=== PATIENT | female | born 1990 | race Caucasian/White ===

== ENCOUNTER 2016-10-17 19:55 | Emergency (ER) | payer OTHER ==
[2016-10-17] MEDS ORDERED: ACETAMINOPHEN 325 MG TABLET PO ONE (20:30)
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
[2016-10-17 21:56] LABS: ABSOLUTE BASOPHILS # (AUTO) 0.1 10^3/uL (0.0-0.2); ABSOLUTE LYMPHOCYTES (AUTO) 2.3 10^3/uL (0.5-4.7); ABSOLUTE MONOCYTES (AUTO) 0.9 10^3/uL (0.1-1.4); ABSOLUTE NEUT (AUTO) 10.6 10^3/uL (1.7-8.2); BASOPHILS % (AUTO) 0.4 % (0-2); EOSINOPHILS % (AUTO) 0.3 % (0-6); HEMATOCRIT 41.9 % (36.0-47.0); HEMOGLOBIN 14.3 g/dL (12.0-15.5); LYMPHOCYTES % (AUTO) 16.8 % (13-45); MEAN CORPUSCULAR HEMOGLOBIN 28.3 pg (27.0-33.4); MEAN CORPUSCULAR HGB CONC 34.2 g/dL (32.0-36.0); MEAN CORPUSCULAR VOLUME 83 fl (80-97); MONOCYTES % (AUTO) 6.2 % (3-13); RED BLOOD COUNT 5.07 10^6/uL (3.72-5.28); RED CELL DISTRIBUTION WIDTH 12.7 % (11.5-14.0); SEGMENTED NEUTROPHILS % (AUTO) 76.3 % (42-78); WHITE BLOOD COUNT 13.9 10^3/uL (4.0-10.5)
[2016-10-17 21:57] LABS: APPEARANCE,URINE SLIGHTLY-CLOUDY; BILIRUBIN,URINE NEGATIVE (NEGATIVE); GLUCOSE, URINE NEGATIVE (NEGATIVE); KETONES,URINE NEGATIVE (NEGATIVE); LEUKOCYTE ESTERASE,URINE SMALL (NEGATIVE); NITRITE,URINE NEGATIVE (NEGATIVE); PROTEIN,URINE 30 mg/dL (NEGATIVE); URINE SPECIFIC GRAVITY 1.029; UROBILINOGEN,URINE NEGATIVE mg/dL (<2.0)
[2016-10-17 22:07] LABS: ALANINE AMINOTRANSFERASE 25 U/L (9-52); ALBUMIN 3.9 g/dL (3.5-5.0); ALKALINE PHOSPHATASE 72 U/L (38-126); ANION GAP 8 (5-19); ASPARTATE AMINO TRANSFERASE 19 U/L (14-36); BILIRUBIN,TOTAL 0.4 mg/dL (0.2-1.3); BLOOD UREA NITROGEN 8 mg/dL (7-20); CALCIUM 9.9 mg/dL (8.4-10.2); CARBON DIOXIDE 27 mmol/L (22-30); CHLORIDE 106 mmol/L (98-107); GLUCOSE 102 mg/dL (75-110); POTASSIUM 3.8 mmol/L (3.6-5.0); SODIUM 141.3 mmol/L (137-145); TOTAL PROTEIN 7.3 g/dL (6.3-8.2)
[2016-10-17 22:41] LABS: URINE BARBITURATES SCREEN NEGATIVE; URINE METHADONE SCREEN NEGATIVE; URINE OPIATES LOW NEGATIVE; URINE PHENCYCLIDINE SCREEN NEGATIVE
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
[2016-10-18] MEDS ORDERED: CYCLOBENZAPRINE HCL 10 MG TABLET PO ONE (00:52)
[2016-10-18] MEDS ORDERED: IBUPROFEN 800 MG TABLET PO ONE (00:52)
[2016-10-18 01:30] VITALS: BP 121/67
== END 2016-10-18 01:28 | disposition home or self-care (01) ==
LOC: ER 19:55
DX: R51 Headache (principal); M54.89 Other dorsalgia; R10.31 Right lower quadrant pain; M54.2 Cervicalgia; V48.0XXA Car driver injured in noncollision transport accident in nontraffic accident, initial encounter
CPT/HCPCS: 36415; 70450; 72070; 72125; 74177; 80053; 80307; 81001; 84703; 85025; 99285

== ENCOUNTER 2016-12-18 13:49 | Emergency (ER) | payer MEDICAID, OTHER ==
[2016-12-18 13:54] VITALS: BP 128/76
--- NOTE | 2016-12-18 14:16 | ER Document Report ---
ED Skin Rash/Insect Bite/Abscs - General Chief Complaint: Abscess Stated Complaint: ABSCESS Time seen by provider: 14:13 Mode of Arrival: Ambulatory Information source: Patient Notes: 26-year-old female presents to ED for abscess this started on Wednesday. She states it is progressively gotten bigger and more painful since Wednesday. She states it did have a little bit of drainage on Wednesday but none since then. Pain is a 5 / 5 sharp and stabbing TRAVEL OUTSIDE OF THE [place] IN LAST 30 DAYS: No - HPI Patient complains to provider of: Tender/swollen area Onset: Other - Wednesday Onset/Duration: Gradual Quality of pain: Sharp, Stabbing, Throbbing Severity: Severe Pain Level: 5 Skin Character: Abscess - Right pelvic area Quality of rash: Painful Identify cause: No Exacerbated by: Movement, Walking Relieved by: Denies Similar symptoms previously: No Recently seen / treated by doctor: No - Related Data Allergies/Adverse Reactions: No Known Allergies Allergy (Verified 12/18/16 13:52) Past Medical History - General Information source: Patient - Social History Smoking Status: Current Every Day Smoker Cigarette use (# per day): Yes - wanted to cigarettes a day Chew tobacco use (# tins/day): No Smoking Education Provided: Yes - less than 1 minute Frequency of alcohol use: None Drug Abuse: Marijuana Occupation: [employer] Lives with: Alone - With children Family History: Reviewed & Not Pertinent Patient has suicidal ideation: No Patient has homicidal ideation: No - Past Medical History Cardiac Medical History: Reports: None Pulmonary Medical History: Reports: None EENT Medical History: Reports: None Neurological Medical History: Reports: None Endocrine Medical History: Reports: None Renal/ Medical History: Reports: Hx Kidney Stones Malignancy Medical History: Reports: None GI Medical History: Reports: None Musculoskeltal Medical History: Reports Hx Musculoskeletal Trauma - Left wrist fracture Skin Medical History: Reports Hx Cellulitis Psychiatric Medical History: Reports: Hx Anxiety, Hx Depression Traumatic Medical History: Reports: Hx Fractures - Left wrist Infectious Medical History: Reports: None Past Surgical History: Reports: Hx Oral Surgery - [place] teeth Review of Systems - Review of Systems Constitutional: No symptoms reported EENT: No symptoms reported Cardiovascular: No symptoms reported Respiratory: No symptoms reported Gastrointestinal: No symptoms reported Genitourinary: No symptoms reported Female Genitourinary: No symptoms reported Musculoskeletal: No symptoms reported Skin: Other - Abscess right pelvis Hematologic/Lymphatic: No symptoms reported Neurological/Psychological: No symptoms reported -: Yes All other systems reviewed and negative Physical Exam - Vital signs Vitals: Temp Pulse Resp BP Pulse Ox 98.7 F 99 16 128/76 H 97 12/18/16 13:53 12/18/16 13:53 12/18/16 13:53 12/18/16 13:53 12/18/16 13:53 Interpretation: Normal - General General appearance: Appears well, Alert - HEENT Head: Normocephalic, Atraumatic Eyes: Normal Pupils: PERRL - Respiratory Respiratory status: No respiratory distress Chest status: Nontender Breath sounds: Normal Chest palpation: Normal - Cardiovascular Rhythm: Regular Heart sounds: Normal auscultation Murmur: No - Abdominal Inspection: Normal Distension: No distension Bowel sounds: Normal Tenderness: Nontender Organomegaly: No organomegaly - Back Back: Normal, Nontender - Extremities General upper extremity: Normal inspection, Nontender, Normal color, Normal ROM , Normal temperature General lower extremity: Normal inspection, Nontender, Normal color, Normal ROM , Normal temperature, Normal weight bearing. No: Robert's sign - Neurological Neuro grossly intact: Yes Cognition: Normal Orientation: AAOx4 Luis Felipe Coma Scale Eye Opening: Spontaneous Luis Felipe Coma Scale Verbal: Oriented [place] Coma Scale Motor: Obeys Commands Luis Felipe Coma Scale Total: 15 Speech: Normal Motor strength normal: LUE, RUE, LLE, RLE Sensory: Normal - Psychological Associated symptoms: Normal affect, Normal mood - Skin Skin Temperature: Warm Skin Moisture: Dry Skin Color: Normal Skin irregularity: Abscess - Right pelvis Irregularity with: Swelling, Tenderness, Warmth Course - Re-evaluation Re-evalutation: 12/18/16 14:35 Patient treated with Septra and Keflex after an I&D completed. Patient also discharged home with prescription for [place]ley Septra and Keflex. - Vital Signs Vital signs: Temp Pulse Resp BP Pulse Ox 98.7 F 99 16 128/76 H 97 12/18/16 13:53 12/18/16 13:53 12/18/16 13:53 12/18/16 13:53 12/18/16 13:53 Procedures - Incision and Drainage Right Groin Time completed: 14:34 Type: Simple Anesthetic type: 1% Lidocaine mL's of anesthetic: 5 Blade size: 11 I&D procedure: Sterile dressing applied, Other - surgical scrub Incision Method: Incision made by scalpel Amount/type of drainage: large amount of purulent drainage Female anatomy: 1 - Abscess Discharge - Discharge Clinical Impression: Abscess of right groin Condition: Stable Disposition: HOME, SELF-CARE Instructions: Family Physicians / Practices Additional Instructions: ABSCESS: You have an abscess (boil). This a pus-forming infection, usually due to staph. Some boils may be left to drain on their own, but most require lancing. From the time the tender lump first appears, it may be three or four days before the abscess is ready to martina. Local heat and rest help at this stage of treatment. An antibiotic may prevent spread of the infection. Once the abscess is opened, packing may be placed into it. This is done so pus is not sealed inside by premature closure of the cavity. The packing will be removed at your follow-up visit or you may be advised to remove it yourself at home. Sometimes this packing must be replaced a few times during healing. The wound will heal with surprisingly little scar. Depending on the size and location of an abscess, healing can take one to four weeks. You may shower and wash the area around the incision site two or three times a day. Antibiotics may be prescribed, but are usually not necessary after an abscess has been drained. If you develop fever, chills, worsening pain, or increasing swelling in the area, call the doctor or return immediately. POST INCISION AND DRAINAGE: You have had an incision made to allow drainage of an abscess. The incision must remain open so that pus and debris can drain from the wound. If the abscess cavity is large, packing is placed. This keeps the tissues from collapsing and trapping pus inside, while the body shrinks the cavity. The packing may need to be replaced every day or two. The physician will instruct you on the packing. Keep a bulky dressing over the area. Replace it if it becomes saturated with blood or pus. Do not disturb the packing (if present). You may shower and cleanse the area with gentle soap and warm water two or three times a day. Local warmth may be soothing, and may promote faster healing. Return if you develop high fever or chills, or if you note spreading redness, increasing swelling, or increasing tenderness. ORAL NARCOTIC MEDICATION: You have been given a prescription for pain control. This medication is a narcotic. It's best taken with food, as nausea can result if taken on an empty stomach. Don't operate machinery or drive within six hours of taking this medication. Do not combine this medicine with alcohol, or with any medication which can cause sedation (such as cold tablets or sleeping pills) unless you get permission from the physician. Narcotics tend to cause constipation. If possible, drink plenty of fluids and eat a diet high in fiber and fruits. CEPHALEXIN: The antibiotic you've been prescribed is a member of the cephalosporin class. This type of antibiotic covers a wide variety of infections, including those of the skin, lungs, and urinary tract. It's useful for staph infections. This antibiotic is slightly similar to the penicillin family. In rare cases , a person who is allergic to penicillin will also be allergic to this medication. If you have had a severe allergic reaction to penicillin, and have not taken this antibiotic since that time, notify your doctor. Antibiotics which cover many germs ("broad spectrum" antibiotics) are more likely to cause diarrhea or "yeast" infections. Women prone to vaginal yeast problems may suffer an attack after taking this antibiotic. In infants, oral thrush (white spots "stuck" on the cheek) or yeast diaper rash may result. See your doctor if these problems occur. Call at once if you develop itching, hives , shortness of breath, or lightheadedness. TRIMETHOPRIM-SULFA: You have been given a prescription for trimethoprim-sulfa (TMS, Septra, Bactrim). This is a combination antibiotic of the sulfa class, often used for urinary tract infections, middle ear infections, bronchitis, shigella intestinal infection, and Pneumocystis pneumonia. TMS is usually well-tolerated. Occasional side effects include nausea and decreased appetite. Septra is not recommended for infants less than two months of age. Do not take this medication if you have experienced severe side effects or allergy to sulfa medicine. You should stop this medicine at once and contact your physician if you develop any rash, joint pain, shortness of breath, bruising, or jaundice ( yellow color in the skin), or if you develop any other new or unusual symptoms. FOLLOW-UP CARE: Most simple abscesses will not require a follow up visit. If you had packing placed in the abscess, remove it as instructed by the physician. If you have been referred to a physician for follow-up care, call the physicians office for an appointment as you were instructed or within the next two days. If you experience worsening or a significant change in your symptoms, return to the Emergency Department at any time for re-evaluation. Please complete the patient's satisfaction survey if you get one and return. If you do not receive a survey you can go to [facility] website [email or web address] and place your comments about your very good care. Thank you very much. It was a pleasure be in your medical provider today. Prescriptions: Hydrocodone/Acetaminophen [Hawley 5-325 mg Tablet] 1 tab PO Q6HP PRN #14 tablet PRN Reason: Cephalexin Monohydrate [Keflex 500 mg Capsule] 500 mg PO QID #20 capsule Sulfamethoxazole/Trimethoprim [Septra-Ds 800-160 mg Tablet] 1 tab PO BID #20 tablet Forms: Elevated Blood Pressure, Smoking Cessation Education, Return to Work
[2016-12-18] MEDS ORDERED: SULFAMETHOXAZOLE/TRIMETHOPRIM 800-160 MG TABLET PO ONE (14:33)
[2016-12-18] MEDS ORDERED: CEPHALEXIN 500 MG CAPSULE PO ONE (14:33)
== END 2016-12-18 14:54 | disposition home or self-care (01) ==
LOC: ER 13:49
PROC: 0H97XZZ Drainage of Abdomen Skin, External Approach (ICD-10-PCS; principal; 2016-12-18)
DX: L02.214 Cutaneous abscess of groin (principal); F17.210 Nicotine dependence, cigarettes, uncomplicated; Z87.442 Personal history of urinary calculi
CPT/HCPCS: 87070; 87075; 87077; 87186; 87205; 99283

== ENCOUNTER 2017-03-05 11:25 | Emergency (ER) | payer MEDICAID ==
[2017-03-05 11:30] VITALS: BP 127/82
--- NOTE | 2017-03-05 11:37 | ER Document Report ---
HPI - HPI Patient complains to provider of: dental pain Onset: Other - month Onset/Duration: Persistent Quality of pain: Throbbing Pain Level: 4 Context: 27-year-old female complaining of dental pain. She did have swelling and says it is an abscessed tooth that the penicillin did not take care of. She took the penicillin a month ago. She has a dentist appointment in April. No fever. Associated Symptoms: None Exacerbated by: Denies Relieved by: Denies Similar symptoms previously: No Recently seen / treated by doctor: No - ROS ROS below otherwise negative: Yes Systems Reviewed and Negative: Yes All other systems reviewed and negative - DERM Skin Color: Normal Past Medical History - General Information source: Patient - Social History Smoking Status: Current Every Day Smoker Frequency of alcohol use: None Drug Abuse: None Lives with: Family Family History: Reviewed & Not Pertinent Patient has suicidal ideation: No Patient has homicidal ideation: No Renal/ Medical History: Reports: Hx Kidney Stones. Denies: Hx Peritoneal Dialysis Musculoskeltal Medical History: Reports Hx Musculoskeletal Trauma - Left wrist fracture Skin Medical History: Reports Hx Cellulitis Psychiatric Medical History: Reports: Hx Anxiety, Hx Depression Traumatic Medical History: Reports: Hx Fractures - Left wrist Past Surgical History: Reports: Hx Oral Surgery - [place] teeth Vertical Provider Document - CONSTITUTIONAL Agree With Documented VS: Yes Exam Limitations: No Limitations - INFECTION CONTROL TRAVEL OUTSIDE OF THE [place] IN LAST 30 DAYS: No - HEENT HEENT: Normocephalic. negative: Pharyngeal Erythema Notes: retracted gingiva with toro on all teeth, no abscess palapated, she c/o most pain to the lower left bicuspid gingiva - NECK Neck: Supple - RESPIRATORY O2 Sat by Pulse Oximetry: 99 - MUSCULOSKELETAL/EXTREMETIES Musculoskeletal/Extremeties: MISSY DUDLEY - NEURO Level of Consciousness: Awake, Alert - DERM Integumentary: Warm, Dry Course - Vital Signs Vital signs: Temp Pulse Resp BP Pulse Ox 98.4 F 73 16 127/82 H 99 03/05/17 11:29 03/05/17 11:29 03/05/17 11:29 03/05/17 11:29 03/05/17 11:29 Discharge - Discharge Clinical Impression: Gingivitis, Mouth pain Condition: Good Disposition: HOME, SELF-CARE Instructions: Toothache ([facility]), Clindamycin ([facility]), Ultram ([facility]), Dentist Additional Instructions: get electric toothbrush see the dentist, you need major cleaning to help the gums get healthy to er any fever, swelling, worsening symptoms Please complete the patient satisfaction survey if you get one, and return it.. If you do not receive a survey, then you can go to the [facility] website, [email or web address] and place your comments about your very good care. Thank you very much. It was a pleasure being your medical provider today. Prescriptions: Clindamycin HCl [Cleocin 150 mg Capsule] 300 mg PO TID #42 capsule Tramadol HCl [Ultram 50 mg Tablet] 50 mg PO ASDIR PRN #20 tablet PRN Reason:
== END 2017-03-05 11:40 | disposition home or self-care (01) ==
LOC: ER 11:25
DX: K05.10 Chronic gingivitis, plaque induced (principal); Z87.442 Personal history of urinary calculi
CPT/HCPCS: 99282

== ENCOUNTER 2017-07-18 13:32 | Emergency (ER) | payer OTHER, MEDICAID ==
[2017-07-18 13:47] VITALS: BP 113/67
[2017-07-18] MEDS ORDERED: OXYCODONE-ACETAMINOPHEN 5-325 MG TABLET PO ONE (14:44)
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
== END 2017-07-18 15:40 | disposition home or self-care (01) ==
LOC: ER 13:32
DX: S29.012A Strain of muscle and tendon of back wall of thorax, initial encounter (principal); M54.6 Pain in thoracic spine; V87.7XXA Person injured in collision between other specified motor vehicles (traffic), initial encounter; F17.200 Nicotine dependence, unspecified, uncomplicated
CPT/HCPCS: 72070; 99284

== ENCOUNTER → 2018-04-12 | Outpatient (CLI) | payer MEDICAID | LOC: OD 11:13 | PROVIDERS: ATTEND Family Medicine | DX: N91.1 Secondary amenorrhea (principal) | CPT/HCPCS: 36415; 83001; 84146; 84443; 84703 ==

== ENCOUNTER → 2018-04-14 | Outpatient (CLI) | payer MEDICAID | LOC: OD 15:22 | PROVIDERS: ATTEND Family Medicine | DX: Z53.9 Procedure and treatment not carried out, unspecified reason (principal) ==

== ENCOUNTER → 2018-04-18 | Outpatient (CLI) | payer MEDICAID | LOC: OD 09:18 | PROVIDERS: ATTEND Family Medicine | DX: Z34.92 Encounter for supervision of normal pregnancy, unspecified, second trimester (principal) | CPT/HCPCS: 86900; 86901; 86850; 36415; J2790 ==

== ENCOUNTER → 2018-04-19 | Outpatient (CLI) | payer MEDICAID ==
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
== END ==
LOC: RAD 14:21
PROVIDERS: ATTEND Internal Medicine
DX: Z34.92 Encounter for supervision of normal pregnancy, unspecified, second trimester (principal)
CPT/HCPCS: 76805